=== PATIENT | female | born 1970 | race Caucasian/White ===

== ENCOUNTER → 2020-08-28 13:11 | Outpatient (BNVA) | payer MEDICARE, SELFPAY | PROVIDERS: PCP Family Medicine; Visit Provider Nurse Practitioner | DX: G43.709 Chronic migraine without aura, not intractable, without status migrainosus (principal); E61.1 Iron deficiency | CPT/HCPCS: 99204 ==

== ENCOUNTER → 2021-04-09 09:34 | Outpatient (BNVA) | payer MEDICARE, SELFPAY | PROVIDERS: PCP Family Medicine; Visit Provider Specialist | DX: G43.711 Chronic migraine without aura, intractable, with status migrainosus (principal) | CPT/HCPCS: 99214 ==

== ENCOUNTER 2021-05-21 11:35 | Outpatient (CLI) | payer MEDICARE, SELFPAY ==
--- NOTE | 2021-05-21 11:45 | MR_ITS ---
WS: [id number] MRA ANGIOGRAPHY [place] HISTORY: G43.711 - Chronic migraine without aura, intractable, blurry vision. COMPARISON: None available. TECHNIQUE: 3-D MR angiography is performed of the lower [place]. All images are reviewed including source images. Distal vertebral and basilar arteries are intact with no significant stenosis or plaque. Posterior ce rebral arteries are normal course and caliber. Posterior communicating arteries are both patent but s mall. There is a very slight narrowing of the proximal LEFT cavernous carotid artery. No high-grade stenosi s. No aneurysms or areas of stenosis or occlusion. Middle cerebral and anterior cerebral arteries are normal caliber. MR/MR angio head wo con [id number] IMPRESSION: 1. No aneurysm or occlusions lower [place]. 2. Very mild focal stenosis involving the proximal LEFT cavernous carotid charly ry.
--- NOTE | 2021-05-21 13:00 | MR_ITS ---
WS: [id number] MRI BRAIN WITHOUT CONTRAST HISTORY: G43.711 - Chronic migraine without aura, intractable, blurry vision. COMPARISON: None available. TECHNIQUE: Diffusion imaging, multiplanar T1, T2 and FLAIR imaging obtained. No evidence for acute infarct or hemorrhage. Carlin-white matter differentiation is normal. No significant atrophy. There are 2 very nonspecific foci of increased T2 and FLAIR signal in the sub cortical white matter of the RIGHT brain. No prior infarct. No hemorrhage. Ventricles and extra-axial spaces are normal. No inferior displacement of cerebellar tonsils. The sella turcica and pituitary gland are unremarkabl e. Dural venous sinuses and [place] demonstrate no abnormality on this unenhanced studies. Paranasal sinuses: Clear. Mastoid air cells: Normal. Calvarium and scalp: Intact. Superficial nodule measures 9 mm in the RIGHT parotid gland. This is probably an intraparotid lymph n ode. If clinically necessary this can be evaluated by ultrasound. MR/MR head wo con* [id number] IMPRESSION: 1. No acute infarct or hemorrhage. 2. Minimal RIGHT parietal foci of increased signal. Nonspecific and probably f rom prior small vessel insults.
== END 2021-05-21 11:36 | disposition home or self-care (01) ==
LOC: RAD 11:36
PROVIDERS: PCP Family Medicine; Visit Provider Specialist
DX: G43.711 Chronic migraine without aura, intractable, with status migrainosus (principal); I65.22 Occlusion and stenosis of left carotid artery
CPT/HCPCS: 70544; 70551